=== PATIENT | male | born 1990 | race Caucasian/White ===

== ENCOUNTER 2022-06-28 07:46 | Day surgery (SDC) | payer BC, SELFPAY ==
--- NOTE | 2022-06-27 14:13 | HO.ANESPROP2 ---
Documented by User: Maritza Pang NP 06/27/22 14:14 HPI - Anesthesia Eval Consult details Narrative: 32yo M for Upper Endoscopy [facility] Surgical History Surgical History (Updated 06/28/22 @ 10:43 by Maricruz Alonso MD) History of fracture of clavicle Undescended testicle Social History Social History (Updated 06/28/22 @ 10:43 by Maricruz Alonso MD) Patient Tobacco Use Status: Never used Tobacco Use of substances other than those prescribed or required for medical reasons: Yes Substance Use Type: Marijuana Last Used Substance: Days (ago) Are you DNR?: No Advance Directives: No Advance Directives Information Provided: Yes Meds Allergies Allergy/AdvReac Type Severity Reaction Status Date / Time Sulfa (Sulfonamide Allergy Unknown Verified 06/27/22 10:17 Antibiotics) Exam Exam Date and Time: June 27, 2022 1413 Assessment and Plan Assessment Anesthesia Assessment: Chart Reviewed Documented by User: Maricruz Alonso MD 06/28/22 10:44 [facility] Family History Family history of problems with anesthesia: No Surgical History Surgical History (Updated 06/28/22 @ 10:43 by Maricruz Alonso MD) History of fracture of clavicle Undescended testicle History of Problems with Anesthesia: No Social History Social History (Updated 06/28/22 @ 10:43 by Maricruz Alonso MD) Patient Tobacco Use Status: Never used Tobacco Use of substances other than those prescribed or required for medical reasons: Yes Substance Use Type: Marijuana Last Used Substance: Days (ago) Are you DNR?: No Advance Directives: No Advance Directives Information Provided: Yes Meds Allergies Allergy/AdvReac Type Severity Reaction Status Date / Time Sulfa (Sulfonamide Allergy Unknown Verified 06/27/22 10:17 Antibiotics) Exam Height,Weight and Vital Signs: Height 6 ft 1 in Weight 97.522 kg Vital Signs Temp Pulse Resp BP Pulse Ox O2 Del Method 97.4 F 69 18 128/87 98 06/28/22 08:53 06/28/22 08:53 06/28/22 08:53 06/28/22 08:53 06/28/22 08:53 06/28/22 08:53 Airway Mallampati Class: III TM Dist: >3cm Neck ROM: Full Loose/Missing/Broken Teeth: No Heart: RRR Lungs: CTAB Assessment and Plan Assessment Anesthesia Assessment: Anesthesia Plan Discussed Final Anesthetic Review Family History of Problems with Anesthesia: No History of Problems with Anesthesia: No NPO: Yes ASA Class: I Final Preanesthetic Review: No Changes in Pt Med Stat, Meds/Allgs Chart Reviewed, Consent Obtained/Reviewed and Anes Risks/Benef Reviewed Patient Risk: Low Procedure Risk: Low Assessment/Block/Sedation in SS: Assess/Block/Sedation-SS Anesthetic Plan Anesthetic Plan: MAC: Disposition: Standard PACU
[2022-06-28 08:53] VITALS: BP 128/87; PULSE 69; RESP 18; TEMP 36.3; O2SAT 98; BMI 28.3
[2022-06-28 09:10] VITALS: BMI 28.3
[2022-06-28] MEDS: Lactated Ringers 1,000 ML 100 ML IVCONT (09:10)
--- NOTE | 2022-06-28 10:17 | MHC.SHP ---
Pre-Procedural Eval Section A Date of Service: 06/28/22 The patient is an INPATIENT: No Changes since office visit: No Cold of Flu in the past 2 weeks, No New Medical Problems, No Changes in Medication and No Patient answered all questions The History & Physical has been completed within 30 days and I have reviewed it.: Yes Section B Chief Complaint: Gastro-esophageal reflux,Hematemesis Allergies: Allergies Allergy/AdvReac Type Severity Reaction Status Date / Time Sulfa (Sulfonamide Allergy Unknown Verified 06/27/22 10:17 Antibiotics) Plan I have reviewed the history and physical and performed a pertinent physical examination on my patient. No changes have occurred unless specified.
--- NOTE | 2022-06-28 10:32 | PM.OP ---
Brief Operative Note Date of Service: 06/28/22 Pre-op diagnosis: gerd hematemesis Post-op diagnosis: same Surgeon: Terrance Covarrubias Anesthesia: MAC Was an Painter Ordnance used for this Procedure?: No Estimated blood loss (mL): 2 Pathology: other Condition: stable Disposition: PACU
[2022-06-28 10:38] VITALS: BP 92/46; PULSE 68; RESP 16; TEMP 36.8; O2SAT 96
[2022-06-28 10:53] VITALS: BP 99/54; PULSE 64; RESP 18; TEMP 36.8; O2SAT 98
[2022-06-28 11:03] VITALS: BP 115/70; PULSE 68; RESP 18; TEMP 36.8; O2SAT 98
--- NOTE | 2022-06-28 11:19 | OP_ITS ---
SURGEON: Terrance Covarrubias MD INDICATIONS: Gastroesophageal reflux disease and hematemesis. PREOPERATIVE DIAGNOSIS: POSTOPERATIVE DIAGNOSIS: PROCEDURE PERFORMED: Upper endoscopy with biopsy. ESTIMATED BLOOD LOSS: COMPLICATIONS: ANESTHESIA: Monitored anesthesia care. ASSISTANTS: SPECIMENS: DESCRIPTION OF PROCEDURE: The procedure was performed on 06/28/2022. A history and physical performed. The risks and benefits of the procedure were explained to the patient. Informed consent was obtained. The patient was placed in the left lateral decubitus position. The Olympus video gastroscope was introduced into the esophagus, stomach, and duodenum. Examination was performed. The scope was removed. He tolerated the procedure well and was transferred to recovery area in stable condition. FINDINGS: Esophagus: The esophagus was normal. Biopsies were obtained from the EG junction. Stomach: The stomach was normal. Biopsies were obtained from the antrum. Duodenum: The bulb and second portion were normal. IMPRESSION: Normal upper endoscopy. RECOMMENDATION: Follow up the biopsy results. MD DEISI Wallace/MODL / [id number]
== END 2022-06-28 11:19 | disposition home or self-care (01) ==
PROVIDERS: PCP Nurse Practitioner Family; Visit Provider Internal Medicine Gastroenterology
PROC: 0DJ08ZZ Inspection of Upper Intestinal Tract, Via Natural or Artificial Opening Endoscopic (ICD-10-PCS; CPT 43235; principal; 2022-06-28 09:20)
DX: K21.9 Gastro-esophageal reflux disease without esophagitis (principal); K92.0 Hematemesis; R74.8 Abnormal levels of other serum enzymes; Z88.2 Allergy status to sulfonamides
CPT/HCPCS: 43239; 88305; 88342; J2250